=== PATIENT | male | born 1955 | race Caucasian/White ===

== ENCOUNTER 2021-06-18 08:44 | Outpatient (CLI) | payer MEDICARE, SELFPAY ==
--- NOTE | 2021-06-18 08:52 | ECG_ITS ---
Measurements Intervals [place] Rate: 56 P: 49 ME: 199 QRS: 45 QRSD: 102 T: 29 QT: 406 QTc: 393 Interpretive Statements SINUS BRADYCARDIA MINIMAL Q WAVES- INFERIOR LEADS BASELINE ARTIFACT- I, III BORDERLINE ECG Electronically Signed On 06-18-2021 9:54:20 FILM CLEANER by Walter López D.O.
[2021-06-18 09:29] LABS: Basophils Absolute Auto 0.1 K/mm3 (0.0-0.1); Basophils Percent Auto 0.6 % (0.2-1.2); Eosinophils Absolute Auto 0.4 K/mm3 (0-0.3); Eosinophils Percent Auto 2.9 % (0-4.4); Hematocrit 47.5 % (42.0-52.0); Hemoglobin 15.4 g/dL (14.0-18.0); Immature Granulocyte Absolute 0.06 K/mm3 (0.00-0.031); Immature Granulocyte Percent A 0.4 % (0-0.5); Lymphocytes Absolute Auto 7.64 K/mm3 (0.9-3.2); Lymphocytes Percent Auto 52.9 % (18.3-44.2); Mean Corpuscular HGB Conc 32.4 g/dl (32-36); Mean Corpuscular Hemoglobin 27.5 pg (26-34); Mean Corpuscular Volume 84.8 fl (80-100); Mean Platelet Volume 9.5 fl (7.4-10.4); Monocytes Absolute Auto 0.7 K/mm3 (0.1-0.6); Monocytes Percent Auto 4.5 % (2.6-8.5); Neutrophils Absolute Auto 5.6 K/mm3 (1.3-6.7); Neutrophils Percent Auto 38.7 % (45.5-73.1); Platelet Count Result 307 k/mm3 (150-375); Red Cell Distribution Width 14.5 % (11.5-14.5); White Blood Count 14.4 K/mm3 (4.5-10.0)
[2021-06-18 09:36] LABS: Anion Gap 8 mmol/L (8-16); Blood Urea Nitrogen 15 mg/dL (9-20); Calcium 9.8 mg/dL (8.4-10.2); Carbon Dioxide 30 mmol/L (22-30); Chloride 104 mmol/L (98-107); Estimated Glomerular Filt Rate > 60; Glucose 101 mg/dL (65-110); Potassium 4.2 mmol/L (3.4-5.0); Sodium 142 mmol/L (137-145)
[2021-06-18 09:49] LABS: INR 0.9; Prothrombin Time 11.9 Seconds (11.1-14.7)
[2021-06-18 09:50] LABS: Partial Thromboplastin Time 26.1 SECONDS (22.3-36.8)
[2021-06-18 10:24] LABS: Platelet Estimate Adequate (Adequate)
[2021-06-18 10:25] LABS: Atypical Lymphocytes Present; Smudge Cells PRESENT
== END 2021-06-18 08:45 | disposition home or self-care (01) ==
LOC: ANHSURGERY 08:50
PROVIDERS: Visit Provider Urology
DX: E78.00 Pure hypercholesterolemia, unspecified (principal); N40.0 Benign prostatic hyperplasia without lower urinary tract symptoms; Z01.818 Encounter for other preprocedural examination
CPT/HCPCS: 36415; 80048; 85025; 85610; 85730; 87086; 93005

== ENCOUNTER 2021-06-25 00:23 | Day surgery (SDC) | payer MEDICARE, SELFPAY ==
[2021-06-13 13:34] VITALS: BMI 31.6
--- NOTE | 2021-06-13 14:07 | PC.NURSE ---
Report to the Outpatient Waiting Room, entrance under the green pavilion located off [facility], at time _1030_ on date _06/25/21__. OR Time: __1230__. - You and your visitor will be asked a series of questions to screen for COVID 19 for your protection. - A mask is required within the hospital. - Only one visitor is allowed at this time. Patient visitors will be guided where to wait when not with patient. Preoperative COVID Testing Requirements: No COVID Test needed if: (proof is required; if not received patient will have Rapid Test prior to entry) - Patient has received COVID Vaccine at least 14 days prior to procedure date or - Patient has positive COVID test result within last 90 days of surgery date. COVID Test needed if above criteria is not met If not COVID vaccinated a COVID test must be conducted within 72 hours of surgery and patient is asked to isolate self from time of testing until procedure. You will go to the [facility] for your COVID testing. The [facility] is located at the corner of [address] [facility]. You will only be called if COVID results are positive and your surgeon may reschedule your elective surgery date. Patients may have clear liquids (water, carbonated beverages, clear teas, apple juice) until 3 hours prior to surgery with a maximum of 20 ounces. - No food from midnight until time of surgery - Infants may have breast milk until 4 hours before surgery, formula 6 hours prior to surgery. - Children will be allowed to drink immediately following surgery. If applicable, please bring a bottle or sippy cup to assist with drinking. Juice, water, soda, and popsicles are readily available. For infants on formula, please bring formula the day of surgery. Pacifiers are allowed. Take the following medications with a SIP of water the morning of surgery: ___FLUOXETINE Medications to discontinue per physician Date to take last dose Please no make-up, nail slovenian, hairspray, perfume, deodorant, or body powder the day of surgery. No jewelry (including any body piercings) or valuables the day of surgery, leave them at home. Please take a shower or bath the night before, or the morning of, surgery with an antibacterial soap. Wear comfortable, loose fitting clothing. Children are encouraged to wear pajamas. - Jewelry must be removed prior to entering the operating room. Rings and piercings that are not removed may be cut off. - The hospital will not accept responsibility for valuables. - Please leave all valuables, including medications, at home the day of surgery. If you are going home after surgery, a licensed tow truck driver must drive you home. - NO public transportation without another adult. - We recommend that an adult stay with you for 24 hours following discharge. - We also recommend that you do not drive, make important decision, drink alcoholic beverages, or take any drugs that were not prescribed by your health care provider for at least 24 hours after your discharge time. For Pediatric surgeries, we recommend two adults accompany the child home (only one inside the building at this time). Follow any additional instructions given to you from your surgeon. Telephone instructions given to __PT___and asked if any additional questions and then verbalized understanding. Patient advised to call surgeon office or pre surgery nurse liaison [phone] if any additional questions.
--- NOTE | 2021-06-24 13:58 | WPDANESEPPF ---
Anes - Initial Pre Proc Eval Procedure: Operation Date: 06/25/21 12:30 Proposed Procedures p Trans Urethral Resection Prostate - Hernesto Mcnulty MD Date/Time: 06/24/21 13:58 Surgeon: Hernesto Mcnulty MD Pre Op Diagnosis: acute retention of urine, bph with urinary obstruc Patient Data Age: 65 Gender: M Height: 1.78 m Weight: 100 kg Allergies Allergy/AdvReac Type Severity Reaction Status Date / Time No Known Allergies Allergy Verified 06/13/21 13:31 Home Medications Medication Instructions Recorded Confirmed Type fluoxetine 20 mg QAM 06/13/21 06/13/21 History omeprazole 20 mg QAM 06/13/21 06/13/21 History ropinirole 0.5 mg HS 06/13/21 06/13/21 History tamsulosin 0.4 mg PO HS 06/13/21 06/13/21 History ECG: Date of Service: 06/18/21 Procedure(s): CA 12 lead EKG Accession Number(s): [id number] cc: ~ Measurements Intervals [place] Rate: 56 P: 49 [place]: 199 QRS: 45 QRSD: 102 T: 29 QT: 406 QTc: 393 Interpretive Statements SINUS BRADYCARDIA MINIMAL Q WAVES- INFERIOR LEADS BASELINE ARTIFACT- I, III BORDERLINE ECG Electronically Signed On 06-18-2021 9:54:20 EXHAUSTER ENGINEER by Walter López D.O. Patient hx anesthesia problems: none Family hx anesthesia problems: none Results Review: All pre-operative results and documents have been reviewed as part of the pre-operative evaluation. [facility] Past Medical History Medical History (Updated 06/24/21 @ 13:59 by Hari Medina MD) Arthritis Toth esophagus BPH (benign prostatic hyperplasia) Depression Hyperlipidemia Obesity Social History Social History Smoking packs per day: 0.5 Smoking cigarettes per day: 10.0 Years smoked: 20 Smoking pack-years: 10.00 Smoking status: Former smoker Tobacco type: cigarettes Second hand tobacco smoke exposure: No Additional smoking assessment comments: STATES QUITTING 1999 Alcohol intake: current Drinks per week: 1 Substance use: never Substance use type: does not use Living arrangements: with family Spiritual care concerns: No Anes - Eval Final PreProcedure Day of Procedure 06/24/21 13:58 Patient weight: obese Heart: regular rate and rhythm Lungs: clear to auscultation and normal air movement Airway: Mallampati scale class II Neurological: alert and oriented Last oral intake: >/= 8 hours ASA classification: III Emergent: no Anesthetic plan: proceed Anesthesia type and monitoring: general LMA Results Review: All pre-operative results and documents have been reviewed as part of the pre-operative evaluation. Informed Consent: The patient's anesthetic plan and its attendant risks and benefits were discussed with the patient/family/POA. Questions were solicited and answers provided to the satisfaction of the patient/family/POA.
[2021-06-25] VITALS (12 sets, daily range): BP systolic 111–140; BP diastolic 58–84; PULSE 69–91; RESP 12–18; TEMP 36.1–37.5; O2SAT 92–100
[2021-06-25] MEDS: LACTATED RINGERS 1,000 ML 30 ML IV CONT ×2 (11:25→14:18)
--- NOTE | 2021-06-25 12:11 | WPDHPUPDATE1 ---
History and Physical Update Update Date/Time: 06/25/21 12:11 History and Physical has been reviewed, including an updated exam of the patient. There are NO changes in the patient's condition. Risks, benefits, and alternatives have been discussed and questions answered. Patient agrees to proceed with procedure. Proceed with turp
[2021-06-25] MEDS: ceFAZolin 2 GM/D5W 50 ML 2 GM/50 ML BAG IVPB (12:43)
[2021-06-25] MEDS: LIDOCAINE HCL 2% GEL UROJET 10 ML PKG MUCOUS MEM (12:53)
--- NOTE | 2021-06-25 14:12 | W.PM.PROC2 ---
Procedure Note - Detailed Date of Procedure 06/25/21 Pre-op Diagnosis acute retention of urine, bph with urinary obstruc Post-op Diagnosis same Procedure Performed Transurethral resection of prostate Surgeon Hernesto Mcnulty MD Anesthesia general Description of Procedure Patient is taken to the operative suite and correctly identified. Once anesthesia was obtained was placed in dorsal lithotomy position and prepped and draped sterile fashion. Urethra was dilated up to 28 Hungarian using male sounds. Twenty-four Hungarian resectoscope sheath was then inserted the bladder. There is no tumors noted. Patient has a fairly moderate-sized median lobe. We went ahead and incised resected the tissue from the sulcus bilaterally. We then took down the lateral lobes from the bladder neck to the verumontanum. He has a very tall prostate. We then resected the median lobe. Prostate chips were sent for analysis. Hemostasis was achieved using electrocautery. 2% viscous lidocaine was then inserted into the urethra to [address] was placed with 15 cc in the balloon. This was connected to continuous bladder irrigation. Patient is taken recovery stable condition. Drains Yes Packing No Pathology yes Complications No immediate complications Condition stable Disposition PACU
[2021-06-25] MEDS: DOCUSATE SODIUM 100 MG CAPSULE PO (18:02)
[2021-06-26 01:20] VITALS: BP 118/58; PULSE 82; RESP 16; TEMP 36.4; O2SAT 95
[2021-06-26 05:20] VITALS: BP 117/65; PULSE 75; RESP 16; TEMP 37.1; O2SAT 95
[2021-06-26 05:52] LABS: Hematocrit 36.6 % (42.0-52.0); Hemoglobin 11.9 g/dL (14.0-18.0)
[2021-06-26 06:18] LABS: Anion Gap 7 mmol/L (8-16); Blood Urea Nitrogen 13 mg/dL (9-20); Calcium 8.3 mg/dL (8.4-10.2); Carbon Dioxide 25 mmol/L (22-30); Chloride 102 mmol/L (98-107); Estimated CRCL calculation 76 ml/min; Estimated Glomerular Filt Rate > 60; Glucose 97 mg/dL (65-110); Potassium 3.9 mmol/L (3.4-5.0); Sodium 134 mmol/L (137-145)
[2021-06-26] MEDS: DOCUSATE SODIUM 100 MG CAPSULE PO (07:58)
--- NOTE | 2021-06-26 08:00 | WPDUROPN2 ---
Progress Note: A&P Assessment and Plan (1) BPH (benign prostatic hyperplasia): Code(s): N40.0 - Benign prostatic hyperplasia without lower urinary tract symptoms Status: Acute Assessment and Plan: Doing well at this time. Hold CBI. If urine remains clear will discharge later today with Cordova catheter. Will have Cordova removed next Thursday or Thursday. Subjective Subjective Date/Time Seen: 06/26/21 08:00 Post Op day: 1 (Transurethral resection of prostate) Principal diagnosis: Urinary retention Interval history: Doing well postoperative day 1. Urine is clear with minimal CBI Review of Systems Review of Systems: All systems reviewed & are unremarkable except as noted in HPI and below Exam Const: General: cooperative, comfortable and no acute distress Resp: Effort & Inspection: normal respiratory effort Cardio: Rate: regular rate Rhythm: regular rhythm GI: GI Palp: Yes Soft to palpation Urinary Catheter: Urinary Catheter: patent and draining and urine pink Objective Data Vital Signs Vital Signs: Vital Signs - 24 hr 06/25/21 11:40 06/25/21 14:18 06/25/21 14:30 Temperature 36.8 C 36.2 C L Pulse Rate 71 73 75 Respiratory Rate 16 14 14 Blood Pressure 140/74 111/58 L 123/70 Pulse Oximetry 98 92 95 06/25/21 14:45 06/25/21 15:00 06/25/21 15:15 Temperature Pulse Rate 73 72 70 Respiratory Rate 13 13 15 Blood Pressure 123/75 126/68 131/75 Pulse Oximetry 99 98 100 06/25/21 15:30 06/25/21 15:35 06/25/21 15:50 Temperature 36.8 C 36.1 C L Pulse Rate 69 84 69 Respiratory Rate 12 16 18 Blood Pressure 132/84 133/64 131/73 Pulse Oximetry 98 95 94 06/25/21 16:20 06/25/21 17:20 06/25/21 21:20 Temperature 36.6 C 36.6 C 37.5 C Pulse Rate 71 77 91 Respiratory Rate 16 16 16 Blood Pressure 136/73 128/68 136/71 Pulse Oximetry 96 96 95 06/26/21 01:20 06/26/21 05:20 Temperature 36.4 C 37.1 C Pulse Rate 82 75 Respiratory Rate 16 16 Blood Pressure 118/58 L 117/65 Pulse Oximetry 95 95 Intake/Output Intake/Output: Intake & Output 11/14/21 11/15/21 11/16/21 11/17/21 23:59 23:59 23:59 23:59 Intake Total 06247 3050 Output Total 00182 6635 [facility] -[id number] Meds/Results Medications: Active Medications Generic Name Dose Route Start Last Admin Trade Name Freq PRN Reason Stop Dose Admin Hydrocodone Bitart/Acetaminophen 1 tab 06/25/21 15:35 Hydrocodone/Acetaminophen (*Crx) 5-325 Mg Tablet PO Q4H PRN Pain Rated 1-6 Cephalexin HCl 500 mg 06/26/21 13:00 Cephalexin 500 Mg Capsule PO QID YANETH Docusate Sodium 100 mg 06/25/21 17:00 06/26/21 07:58 Docusate Sodium 100 Mg Capsule PO 100 mg BID YANETH Administration Hyoscyamine 0.125 mg 06/25/21 15:35 Hyoscyamine Sulfate 0.125 Mg Tablet SUBLINGUAL Q6H PRN Bladder Spasm Morphine Sulfate 2 mg 06/25/21 15:35 Morphine Sulfate (*Crx) 2 Mg/Ml Inj IV PUSH Q2H PRN Pain Rated 7-10 Naloxone HCl 0.1 mg 06/25/21 15:35 Naloxone Hcl 0.4 Mg/Ml Vial IV PUSH Q2M PRN Opiate Reversal Ondansetron HCl 4 mg 06/25/21 15:35 Ondansetron Inj 4 Mg/2 Ml Vial IV PUSH Q12H PRN Nausea And Vomiting Labs Labs: Laboratory Results - last 24 hr 06/26/21 06/26/21 05:35 05:35 Hgb 11.9 L D Hct 36.6 L Sodium 134 L Potassium 3.9 Chloride 102 Carbon Dioxide 25 Anion Gap 7 L BUN 13 Creatinine 1.00 Estim Creat Clear Calc 76 Estimated GFR > 60 Glucose 97 Calcium 8.3 L
--- NOTE | 2021-06-26 09:48 | WPDANESPN ---
Anes - Prog Note Post-Op Date/Time: 06/26/21 09:48 Cardiovascular status: normal Respiratory status: normal Airway patency: baseline Mental status: baseline Post-Op hydration status: normal Vital Signs: Last Vital Signs Temp 98.8 F 06/26/21 05:20 Pulse 75 06/26/21 05:20 Resp 16 06/26/21 05:20 BP 117/65 06/26/21 05:20 Pulse Ox 95 06/26/21 05:20 Pain Score (VAS): 08/19 I/O: Intake & Output 06/25/21 06/26/21 06/26/21 23:59 07:59 15:59 Intake Total 19251 3050 Output Total 93504 1892 1703 Balance -3125 -775 -1700 Laboratory Tests 06/26/21 05:35 06/26/21 05:35 06/26/21 06/26/21 05:35 05:35 Hgb 11.9 L D Hct 36.6 L Sodium 134 L Potassium 3.9 Chloride 102 Carbon Dioxide 25 Anion Gap 7 L BUN 13 Creatinine 1.00 Estim Creat Clear Calc 76 Estimated GFR > 60 Glucose 97 Calcium 8.3 L Patient Feedback: Patient satisfied with anesthetic care.
[2021-06-26 10:45] VITALS: BP 124/61; PULSE 76; RESP 16; TEMP 37; O2SAT 97
[2021-06-26] MEDS: CEPHALEXIN 500 MG CAPSULE PO (13:37)
[2021-06-26 14:00] VITALS: BP 106/62; PULSE 91; RESP 16; TEMP 36.8; O2SAT 96
--- NOTE | 2021-06-26 15:45 | P.DS_ITS ---
DS: Admitting Diagnosis Discharge Date 06/26/21 Admitting Diagnosis BPH DS: Discharge Diagnosis Discharge Diagnosis (1) BPH (benign prostatic hyperplasia): Code(s): N40.0 - Benign prostatic hyperplasia without lower urinary tract symptoms Status: Acute Assessment and Plan: The patient underwent a TURP on 06/25/[address] Mcnulty. He tolerated the procedure well and went to recovery in stable condition. He did well overnight and is tolerating diet, activity and pain well. He will go home today with his catheter to f/u next week on Thursday at 10am for a voiding trial. He can resume a regular diet and activity as tolerated. He will resume home medications in addition to antibiotics and stool softeners. DS: Summary Hospital Course Hospital Course: See below. Time Spent with Patient Time attestation: Total time spent providing and/or coordinating discharge services:30 minutes. Exam Resp: Effort & Inspection: normal respiratory effort Cardio: Rate: regular rate GI: GI Palp: Yes Soft to palpation and No Tenderness to palpation present (GI) : General: Yes no CVA tenderness Urinary Catheter: Urinary Catheter: patent and draining, urine clear and urine pink Extrem: General: no edema DS: Data Data Completed and Pending Pending studies at discharge: Pending at discharge 06/25/21 13:56 Surgical [PTH] Routine Labs on day of discharge: Labs from last 24 hours 06/26/21 06/26/21 05:35 05:35 Hgb 11.9 L D Hct 36.6 L Sodium 134 L Potassium 3.9 Chloride 102 Carbon Dioxide 25 Anion Gap 7 L BUN 13 Creatinine 1.00 Estim Creat Clear Calc 76 Estimated GFR > 60 Glucose 97 Calcium 8.3 L Discharge Plan Discharge Patient Disposition: Home, Self-Care Discharge Instructions: Follow up on Thursday at 10am for miner removal and voiding trial. Call the office or go to the ER if you develop a fever >102, grossly bloody urine or a catheter that will not drain. Patient Instructions: Pain Management (DC), Miner Catheter Placement and Care ( DC), Urinary Leg Bag (GEN), Transurethral Prostatectomy (DC), How to Change a Catheter Drainage Bag (DC) Follow-up/Referrals: Hernesto Mcnulty MD [Physician] - Discharge Medications: New cephalexin 500 mg Capsule 500 mg PO QID Qty: 10 RF: 0 docusate sodium 100 mg Capsule 100 mg PO BID Qty: 10 RF: 0 Continued tamsulosin 0.4 mg capsule 0.4 mg PO HS RF: 0 ropinirole 0.5 mg tablet 0.5 mg HS RF: 0 omeprazole 20 mg capsule,delayed release(DR/EC) 20 mg QAM RF: 0 fluoxetine 20 mg capsule 20 mg QAM RF: 0
== END 2021-06-26 15:08 | disposition home or self-care (01) ==
LOC: ANHSURGERY 10:27 → ANH3MED 15:38
PROVIDERS: Visit Provider Urology
PROC: 0VT08ZZ Resection of Prostate, Via Natural or Artificial Opening Endoscopic (ICD-10-PCS; CPT 52601; principal; 2021-06-25 12:30)
DX: N40.1 Benign prostatic hyperplasia with lower urinary tract symptoms (principal); R33.8 Other retention of urine; E78.5 Hyperlipidemia, unspecified; F32.9 Major depressive disorder, single episode, unspecified; E66.9 Obesity, unspecified; Z68.31 Body mass index [BMI] 31.0-31.9, adult; Z87.891 Personal history of nicotine dependence
CPT/HCPCS: 52601; 36415; 80048; 85014; 85018; 85025; 85610; 85730; 87086; 88305; 93005; A9270; J0690; J1100; J2250; J2370; J2405; J2704; J3010; J7120